=== PATIENT | male | born 1960 | race Caucasian/White ===

== ENCOUNTER 2021-12-09 20:20 | Emergency (ER) | payer MEDICAID ==
[~2021-12-09] VITALS: Ht 175.3 cm; Wt 99.4 kg
[2021-12-09] MEDS ORDERED: TETANUS, DIPHTHERIA, PERTUSSIS VAC/PF 0.5ML (>10YR OLD) IM ONE (21:15)
[2021-12-09] MEDS ORDERED: HYDROCODONE/ACETAMINOPHEN 5/325MG TABLET PO ONE (21:15)
[2021-12-09] MEDS ORDERED: ONDANSETRON 4MG ODT PO ONE (21:15)
[2021-12-09] MEDS ORDERED: LIDOCAINE HCL/EPINEPHRINE 1%-EPI 1:100,000 20 ML VIAL INFIL ONE (21:15)
[2021-12-09 21:35] VITALS: BP 170/101
[2021-12-09] MEDS ORDERED: IBUP-2030 MT (22:04)
[2021-12-09] MEDS ORDERED: DOXY100T2 MT (22:04)
[2021-12-09] MEDS ORDERED: CEPH500C2 MT (22:04)
[2021-12-09] MEDS ORDERED: TRAM50TA MT (22:37)
== END 2021-12-09 22:55 | disposition home or self-care (01) ==
LOC: ER 20:20
DX: L02.415 Cutaneous abscess of right lower limb (principal)
CPT/HCPCS: 10060; 87070; 87077; 87186; 87205; 90471; 90715; 99283; J3490; Q0162

== ENCOUNTER 2021-12-11 17:55 | Emergency (ER) | payer MEDICAID ==
[~2021-12-11] VITALS: Ht 175.3 cm; Wt 99.0 kg
[~2021-12-11 17:55] MED LIST: CEPH500C2 MT; DOXY100T2 MT; IBUP-2030 MT; TRAM50TA MT
[2021-12-11 18:00] VITALS: BP 162/100
== END 2021-12-11 23:02 | disposition home or self-care (01) ==
LOC: ER 17:55
DX: Z48.00 Encounter for change or removal of nonsurgical wound dressing (principal); I10 Essential (primary) hypertension; E78.00 Pure hypercholesterolemia, unspecified
CPT/HCPCS: 99281

== ENCOUNTER 2021-12-13 17:54 | Emergency (ER) | payer MEDICAID ==
[~2021-12-13] VITALS: Ht 177.8 cm; Wt 100.0 kg
[2021-12-13] MEDS ORDERED: SULF1TAB48 PO (18:37)
[2021-12-13 19:08] VITALS: BP 135/80
== END 2021-12-13 19:00 | disposition home or self-care (01) ==
LOC: ER 17:54
DX: Z48.00 Encounter for change or removal of nonsurgical wound dressing (principal); E78.00 Pure hypercholesterolemia, unspecified; I10 Essential (primary) hypertension
CPT/HCPCS: 99281

== ENCOUNTER → 2022-02-06 | Emergency (ER) | payer SELFPAY ==
[~2022-02-06] VITALS: Ht 175.3 cm; Wt 98.0 kg
[~2022-02-06] MED LIST changes: +CYCL5TAB PO; +IBUP-2029 PO; +SULF1TAB48 PO
[2022-02-06 23:55] VITALS: BP 101/78
== END ==
LOC: ER 17:19
DX: M54.2 Cervicalgia (principal); M79.601 Pain in right arm; V49.49XA Driver injured in collision with other motor vehicles in traffic accident, initial encounter; Y93.89 Activity, other specified; Y92.89 Other specified places as the place of occurrence of the external cause; Y99.8 Other external cause status; E78.00 Pure hypercholesterolemia, unspecified; I10 Essential (primary) hypertension; Z79.899 Other long term (current) drug therapy
CPT/HCPCS: 99283